=== PATIENT | male | born 1995 | race Caucasian/White ===

== ENCOUNTER 2019-05-04 18:48 | Emergency (ER) | payer BC ==
[2019-05-04] MEDS ORDERED: Ketorolac Tromethamine 60 MG/2 ML VIAL ONE (19:18)
--- NOTE | 2019-05-04 20:18 | CT ---
CT ABDOMEN AND PELVIS WITHOUT IV CONTRAST: 05/04/19 HISTORY: Left sided abdominal and flank pain. FINDINGS: Absence of oral and IV contrast reduces the sensitivity of the exam particularly for evaluation of so lid organs and bowel. The lung bases are clear. No calcified gallstones are noted. No free air, free fluid is seen in the a bdomen or pelvis. A normal appearing appendix is present. There are bilateral renal calculi. There is left sided hydroureteronephrosis due to a 4 mm calculus i n the left UVJ. No right sided hydroureteronephrosis seen. IMPRESSION: 1. Obstructive uropathy due to a 4 mm left UVJ calculus. 2. Nonobstructing bilateral renal calculi. POS: OFF
== END 2019-05-04 20:53 | disposition home or self-care (01) ==
LOC: ERS 18:48
DX: N13.2 Hydronephrosis with renal and ureteral calculous obstruction (principal)
CPT/HCPCS: 74176; 96372; J1885